=== PATIENT | female | born 1990 | race Caucasian/White ===

== ENCOUNTER 2021-05-02 08:23 | Observation (INO) | payer OTHER ==
--- NOTE | 2021-05-02 08:43 | ED ---
General Adult HPI - General Chief complaint: Abdominal Pain Stated complaint: abd pain Time Seen by Provider: 05/02/21 08:25 Source: patient, EMS, RN notes reviewed, old records reviewed Mode of arrival: EMS Limitations: no limitations - History of Present Illness Initial comments: This is a 30-year-old female who presents to the emergency department from another facility where she was diagnosed with intussusception. Patient states last night at about 11:00 she started having left lower quadrant abdominal pain she showed up at the emergency department this morning and the CAT scan was done that showed her having intussusception. Patient states her pain is improved but it is not gone away. Patient states the left lower quadrant. Patient denies vomiting or diarrhea. Patient denies any fever chills. - Related Data Allergies Allergy/AdvReac Type Severity Reaction Status Date / Time codeine Allergy Rash/Hives Verified 05/02/21 08:32 Review of Systems ROS Statement: Those systems with pertinent positive or pertinent negative responses have been documented in the HPI. ROS Other: All systems not noted in ROS Statement are negative. Past Medical History Additional Past Medical History / Comment(s): anemia History of Any Multi-Drug Resistant Organisms: None Reported Past Surgical History: Tubal Ligation Past Psychological History: No Psychological Hx Reported Smoking Status: Current every day smoker Past Alcohol Use History: None Reported Past Drug Use History: Marijuana General Exam - General Exam Comments Initial Comments: GENERAL: Patient is well-developed and well-nourished. Patient is nontoxic and well- hydrated and is in mild distress. ENT: Neck is soft and supple. No significant lymphadenopathy is noted. Oropharynx is clear. Moist mucous membranes. Neck has full range of motion without eliciting any pain. EYES: The sclera were anicteric and conjunctiva were pink and moist. Extraocular movements were intact and pupils were equal round and reactive to light. Eyelids were unremarkable. PULMONARY: Unlabored respirations. Good breath sounds bilaterally. No audible rales rhonchi or wheezing was noted. CARDIOVASCULAR: There is a regular rate and rhythm without any murmurs gallops or rubs. ABDOMEN: Left lower quadrant tenderness. SKIN: Skin is clear with no lesions or rashes and otherwise unremarkable. NEUROLOGIC: Patient is alert and oriented x3. Cranial nerves II through XII are grossly intact. Motor and sensory are also intact. Normal speech, volume and content. Symmetrical smile. MUSCULOSKELETAL: Normal extremities with adequate strength and full range of motion. No lower extremity swelling or edema. No calf tenderness. LYMPHATICS: No significant lymphadenopathy is noted PSYCHIATRIC: Normal psychiatric evaluation. Limitations: no limitations Course Vital Signs 05/02/21 05/02/21 08:25 09:34 Temperature 97.7 F Pulse Rate 59 L 55 L Respiratory 18 18 Rate Blood Pressure 113/72 88/62 O2 Sat by Pulse 98 98 Oximetry Medical Decision Making - Medical Decision Making Computed tomography scan was reread by Dr. javier of radiology and he agreed that there was an intussusception. I spoke with but he wanted the patient admitted admitted the patient wrote admitting orders. - Lab Data Lab Results 05/02/21 Range/Units 08:42 Plasma Lactic Acid Patricio 0.7 (0.7-2.0) mmol/L Disposition Clinical Impression: Intussusception Disposition: ADMITTED IP TO THIS HOSP Referrals: Nonstaff,Physician [Primary Care Provider] - 1-2 days Time of Disposition: 09:41
[2021-05-02] MEDS ORDERED: HYDROmorphone 0.5 MG/0.5 ML SYRINGE IVP STA (09:22)
[2021-05-02] MEDS ORDERED: SODIUM CHLORIDE 0.9% 1,000 ML IV ONE ×2 (09:38→09:49)
[2021-05-02] MEDS ORDERED: NICOTINE 14MG/24HR PATCH TRANSDERM STA (10:21)
[2021-05-02] MEDS ORDERED: KETOROLAC 15 MG/ML 1 ML VIAL IVP STA (11:47)
--- NOTE | 2021-05-02 14:31 | FL ---
EXAMINATION TYPE: FL small bowel follow through DATE OF EXAM: 05/02/2021 CLINICAL HISTORY: Abnormal outside CT. Pain with small bowel intussusception. TECHNIQUE: A single contrast small bowel follow through is performed utilizing diluted Isovue 370. 31 minutes of fluoro time and 10 images obtained. COMPARISON: Outside CT abdomen and pelvis earlier today FINDINGS: [employer] Sales[employer] image of the abdomen shows overall nonobstructive bowel gas pattern. Some residual I V contrast from CT both collecting systems and bladder. Tubal ligation clips in the pelvis are redemo nstrated bilaterally. The small bowel study shows normal transit to the colon in less than 120 minutes. There is a normal mucosal fold pattern throughout the small bowel on images saved. There is no evidence of any strictu re or filling defect noted. Slightly suboptimal in due to 1 fluoroscopic table being down there was d elay in getting patient onto table and majority of contrast. Left the proximal to mid jejunal loops n ear site of intussusception on outside CT left mid to lower abdominal level . No obvious mass at this level could be identified. The terminal ileum is within normal limits. IMPRESSION: No bowel obstruction. No persistent intussusception.
[2021-05-02] MEDS ORDERED: HYDROcodone/APAP 5-325MG 1 EACH TAB PO PRN (16:20)
[2021-05-02] MEDS ORDERED: ONDANSETRON 4 MG/2 ML VIAL IVP PRN (16:20)
[2021-05-02] MEDS ORDERED: HYDROmorphone 0.5 MG/0.5 ML SYRINGE IVP PRN (16:20)
[2021-05-02] MEDS ORDERED: NALOXONE 0.4 MG/ML 1 ML VIAL IV PRN (16:20)
--- NOTE | 2021-05-02 16:23 | P.GSHP ---
History of Present Illness H&P Date: 05/02/21 Chief Complaint: Left-sided abdominal pain 30-year-old female transferred from [facility] after patient presents with left lower quadrant pain. CAT scan performed showing intussusception proximal jejunum. Patient says pain began yesterday. Increasing in severity. Was better after the ER evaluation however this afternoon getting slightly worse again. Some nausea but no vomiting. She had loose stools. No history of similar events in the past. No fevers. Denies rectal bleeding or melena. No dysuria or hematuria. No vaginal discharge. White blood cell count was slightly elevated. Lactic acid normal. The patient was sent for small bowel series which shows no abnormalities. - Review of Systems Comment: The patient denies any acute changes in vision or hearing, no dysphagia or odynophagia, no chest pain or shortness of breath, no dysuria or hematuria, no headache, no runny nose, no rectal bleeding or melena, no unexplained weight loss Past Medical History Additional Past Medical History / Comment(s): anemia History of Any Multi-Drug Resistant Organisms: None Reported Past Surgical History: Tubal Ligation Past Psychological History: No Psychological Hx Reported Smoking Status: Current every day smoker Past Alcohol Use History: None Reported Past Drug Use History: Marijuana Additional Drug Use History / Comment(s): 1/2 pack per day smoker - Past Family History Mother Additional Family Medical History / Comment(s): hypothyroidism Medications and Allergies Home Medications Medication Instructions Recorded Confirmed Type Ferrous Sulfate [Feosol] 325 mg PO DAILY 05/02/21 05/02/21 History Allergies Allergy/AdvReac Type Severity Reaction Status Date / Time codeine Allergy Rash/Hives Verified 05/02/21 10:00 Surgical - Exam Vital Signs Temp Pulse Resp BP Pulse Ox 97.7 F 59 L 18 113/72 98 05/02/21 08:25 05/02/21 08:25 05/02/21 08:25 05/02/21 08:25 05/02/21 08:25 Physical exam: General: Well-developed, well-nourished HEENT: Normocephalic, sclerae nonicteric Abdomen: Mild left lower quadrant tenderness, nondistended Extremities: No edema Neuro: Alert and oriented Assessment and Plan (1) Intussusception Narrative/Plan: 30-year-old female with left lower quadrant pain. CAT scan showed intussusception. Films reviewed. Slight proximal duodenal and gastric dilation and mild inflammation thought to be present at the site of intussusception. Small bowel series however shows no residual intussusception and no mucosal irregularities. Given the patient's description of pain being mostly left lower quadrant I'm not convinced that the intussusception was the source of her pain. Etiology remains unclear at this time. Begin clear liquids. Recheck labs tomorrow. Possible discharge tomorrow if improved. Current Visit: Yes Status: Acute Code(s): K56.1 - INTUSSUSCEPTION SNOMED Code(s): 19305873
[2021-05-02] MEDS: KETOROLAC 15 MG/ML 1 ML VIAL IVP SCH (17:34)
[2021-05-03] MEDS: KETOROLAC 15 MG/ML 1 ML VIAL IVP SCH ×3 (01:10→13:53)
[2021-05-03] MEDS: HEPARIN SODIUM,PORCINE/PF 5,000 UNIT/0.5 ML SYRINGE SQ SCH ×2 (01:11→09:07)
[2021-05-03 05:29] LABS: HCT 35.3 % (34.0-46.0); HGB 11.8 gm/dL (11.4-16.0); MCH 32.5 pg (25.0-35.0); MCHC 33.3 g/dL (31.0-37.0); MCV 97.5 fL (80.0-100.0); RBC 3.62 m/uL (3.80-5.40); RDW 12.3 % (11.5-15.5); WBC 5.1 k/uL (3.8-10.6)
[2021-05-03 05:30] LABS: Basophils % (A) 1 %; Eosinophils # (A) 0.1 k/uL (0-0.7); Eosinophils % (A) 3 %; Lymphocytes # (A) 1.8 k/uL (1.0-4.8); Lymphocytes % (A) 35 %; Mean Platelet Volume 8.4; Monocytes # (A) 0.2 k/uL (0-1.0); Monocytes % (A) 4 %; Neutrophils # (A) 2.8 k/uL (1.3-7.7); Neutrophils % (A) 56 %; Platelet Count 151 k/uL (150-450)
[2021-05-03] MEDS ORDERED: PANTOPRAZOLE 40 MG/10 ML VIAL IV SCH (09:00)
[2021-05-03 10:53] LABS: ALT <8 U/L (8-44); AST 12 U/L (13-35); African American GFR (CKD) 136.7 (60.0-200.0); Albumin/Globulin Ratio 2.57 (1.60-3.17); Alkaline Phosphatase 47 U/L (41-126); Carbon Dioxide 21.6 mmol/L (21.6-31.8); Chloride 114 mmol/L (96-109); Globulin 1.4 g/dL (1.6-3.3); Glucose 73 mg/dL (70-110); Non-African American GFR(CKD) 117.9 (60.0-200.0); Potassium 3.8 mmol/L (3.5-5.5); Sodium 140 mmol/L (135-145); Total Bilirubin 0.5 mg/dL (0.3-1.2)
[2021-05-03 12:21] VITALS: BP 96/61; PULSE 49; RESP 16; TEMP 98.3
[2021-05-03 13:51] VITALS: BMI 17.1
--- NOTE | 2021-05-03 15:24 | P.DS ---
<GaetanoМария - Last Filed: 05/03/21 15:05> Providers Expected date of discharge: 05/03/21 Hospital Course: Discharge diagnosis 1. Left lower quadrant abdominal pain exact etiology unclear. Questionable if pain was due to intussusception. Hospital course This is a 30-year-old female transferred from [facility] after patient presents with left lower quadrant pain. CAT scan performed showing intussusception proximal jejunum. Patient says pain began yesterday. Increasing in severity. Was better after the ER evaluation however this afternoon getting slightly worse again. Some nausea but no vomiting. She had loose stools. No history of similar events in the past. No fevers. Denies rectal bleeding or melena. No dysuria or hematuria. No vaginal discharge. White blood cell count was slightly elevated. Lactic acid normal. The patient was sent for small bowel series which shows no abnormalities. Dr. Suazo was not convinced that the intussusception was the source of her pain. Etiology remains unclear at this time. Patient's abdominal pain has resolved. She has tolerated advancement of diet. She is afebrile. White count normal at 5.1. Patient is stable for discharge. Please refer to chart for any further details. Physician Clerical Office Worker note has been reviewed by physician. Signing provider agrees with the documented findings, assessment, and plan of care. Patient Condition at Discharge: Stable Plan - Discharge Summary Discharge Rx Participant: No New Discharge Prescriptions: Continue Ferrous Sulfate [Iron (65 MG Elemental)] 325 mg PO DAILY Discharge Medication List Ferrous Sulfate [Iron (65 MG Elemental)] 325 mg PO DAILY 05/02/21 [History] Follow up Appointment(s)/Referral(s): Nonstaff,Physician [Primary Care Provider] - 1-2 days Activity/Diet/Wound Care/Special Instructions: Patient can continue with [id number] Tylenol and Motrin as needed for pain Regular diet as tolerated Activity as tolerated Discharge Disposition: HOME SELF-CARE <Omid Suazo - Last Filed: 05/04/21 14:07> Providers Date of admission: 05/02/21 09:49 Attending physician: Omid Suazo Primary care physician: Nonstaff - Discharge Diagnosis(es) (1) Intussusception Status: Acute Hospital Course: As above. Patient's pain has resolved. Etiology remains somewhat unclear. Not sure if this was related to the transient intussusception or not. May discharge. Follow-up with primary care post discharge. Follow-up with myself as needed.
== END 2021-05-03 16:12 | disposition home or self-care (01) ==
LOC: EC 08:23 → INTOOBSV 09:49 → 4SSUR 09:49 → 5NMEDONC 10:11 → UNDODISIN 05-03 16:12
PROVIDERS: ADMIT Surgery; ATTEND Surgery
DX: R10.32 Left lower quadrant pain (principal); K56.1 Intussusception; D64.9 Anemia, unspecified; F17.210 Nicotine dependence, cigarettes, uncomplicated; Z20.822 Contact with and (suspected) exposure to COVID-19; Z79.899 Other long term (current) drug therapy; Z88.5 Allergy status to narcotic agent; Z98.51 Tubal ligation status; Z83.49 Family history of other endocrine, nutritional and metabolic diseases
CPT/HCPCS: 96376 ×2; 96361 ×3; 96372; 96375 ×2; 96374; 99285; 36415; 80053; 83605; 85025; 87635; 74250; G0378 ×2; S4990; J1885 ×2; C9113; J1170; Q9967; J1644